=== PATIENT | female | born 1980 | race Caucasian/White ===

== ENCOUNTER 2017-11-12 22:52 | Observation (INO) | payer SELFPAY ==
[2017-11-12] MEDS ORDERED: ONDANSETRON 4 MG TAB.RAPDIS PO ONE (23:55)
--- NOTE | 2017-11-12 23:56 | ER Document Report ---
ED Medical Screen (RME) - General Chief Complaint: Abdominal Pain Stated Complaint: STOMACH PAIN Time Seen by Provider: 11/12/17 23:54 Notes: 37-year-old female chief complaint of right upper quadrant and epigastric pain with radiation around to her right flank, intermittently for some time but worse frequently, happens every time she eats now. Reports nausea but denies vomiting. No fever. Still has her gallbladder. TRAVEL OUTSIDE OF THE [place] IN LAST 30 DAYS: No - Related Data Allergies/Adverse Reactions: erythromycin base [Erythromycin Base] Allergy (Severe, Verified 12/24/14 10:23) Anaphylaxis Past Medical History - Immunizations Hx Diphtheria, Pertussis, Tetanus Vaccination: Yes - received 04/2013 Physical Exam - Vital signs Vitals: Temp Pulse Resp BP Pulse Ox 98.7 F 72 12 148/97 H 100 11/12/17 23:04 11/12/17 23:04 11/12/17 23:04 11/12/17 23:04 11/12/17 23:04 - General General appearance: Appears well In distress: None - Abdominal Tenderness: Tender - Right upper quadrant and epigastric tenderness, remaining abdomen benign Course - Vital Signs Vital signs: Temp Pulse Resp BP Pulse Ox 98.7 F 72 12 148/97 H 100 11/12/17 23:04 11/12/17 23:04 11/12/17 23:04 11/12/17 23:04 11/12/17 23:04
[2017-11-13 01:36] LABS: ABSOLUTE BASOPHILS # (AUTO) 0.1 10^3/uL (0.0-0.2); ABSOLUTE EOSINOPHILS # (AUTO) 0.3 10^3/uL (0.0-0.6); ABSOLUTE LYMPHOCYTES (AUTO) 3.2 10^3/uL (0.5-4.7); ABSOLUTE MONOCYTES (AUTO) 0.4 10^3/uL (0.1-1.4); ABSOLUTE NEUT (AUTO) 3.9 10^3/uL (1.7-8.2); EOSINOPHILS % (AUTO) 3.6 % (0-6); HEMATOCRIT 39.4 % (36.0-47.0); HEMOGLOBIN 13.4 g/dL (12.0-15.5); MEAN CORPUSCULAR HEMOGLOBIN 31.7 pg (27.0-33.4); MEAN CORPUSCULAR VOLUME 93 fl (80-97); MONOCYTES % (AUTO) 5.1 % (3-13); PLATELET COUNT 277 10^3/uL (150-450); RED BLOOD COUNT 4.22 10^6/uL (3.72-5.28); RED CELL DISTRIBUTION WIDTH 13.9 % (11.5-14.0); SEGMENTED NEUTROPHILS % (AUTO) 49.3 % (42-78); TOTAL CELLS COUNTED % (AUTO) 100 %; WHITE BLOOD COUNT 7.9 10^3/uL (4.0-10.5)
[2017-11-13 01:43] LABS: APPEARANCE,URINE CLOUDY; BILIRUBIN,URINE NEGATIVE (NEGATIVE); CALCIUM OXALATE CRYSTALS,URINE FEW /HPF; COLOR,URINE YELLOW; GLUCOSE, URINE NEGATIVE (NEGATIVE); KETONES,URINE NEGATIVE (NEGATIVE); LEUKOCYTE ESTERASE,URINE LARGE (NEGATIVE); NITRITE,URINE POSITIVE (NEGATIVE); PROTEIN,URINE NEGATIVE (NEGATIVE); URINE SPECIFIC GRAVITY 1.017; UROBILINOGEN,URINE NEGATIVE mg/dL (<2.0)
[2017-11-13 01:51] LABS: ALANINE AMINOTRANSFERASE 12 U/L (9-52); ALBUMIN 4.3 g/dL (3.5-5.0); ALKALINE PHOSPHATASE 51 U/L (38-126); ANION GAP 9 (5-19); ASPARTATE AMINO TRANSFERASE 13 U/L (14-36); BILIRUBIN,DIRECT 0.3 mg/dL (0.0-0.4); BILIRUBIN,TOTAL 0.3 mg/dL (0.2-1.3); BLOOD UREA NITROGEN 14 mg/dL (7-20); CALCIUM 10.5 mg/dL (8.4-10.2); CARBON DIOXIDE 32 mmol/L (22-30); CHLORIDE 105 mmol/L (98-107); GLUCOSE 77 mg/dL (75-110); LIPASE 253.9 U/L (23-300); POTASSIUM 4.8 mmol/L (3.6-5.0); TOTAL PROTEIN 7.4 g/dL (6.3-8.2)
--- NOTE | 2017-11-13 02:28 | ER Document Report ---
ED General - General Chief Complaint: Abdominal Pain Stated Complaint: STOMACH PAIN Time Seen by Provider: 11/12/17 23:54 TRAVEL OUTSIDE OF THE [place] IN LAST 30 DAYS: No - HPI Notes: 37-year-old female presents with epigastric pain. Patient describes months or longer of intermittent epigastric pain. Somewhat worse over the last couple of weeks. Generally related to food and eating. She cannot pick out any particular foods such as greasy foods it seems exacerbated. Sharp achy, nonradiating except sometimes to her back. Nausea but no vomiting. Gradual onset. No other modifying factors, no other associated symptoms, no other provocative or palliative factors. - Related Data Allergies/Adverse Reactions: erythromycin base [Erythromycin Base] Allergy (Severe, Verified 12/24/14 10:23) Anaphylaxis Past Medical History - Social History Smoking Status: Current Every Day Smoker Family History: None - Immunizations Hx Diphtheria, Pertussis, Tetanus Vaccination: Yes - received 04/2013 Review of Systems - Review of Systems Notes: Review of systems as in the history of present illness, otherwise negative x 10 systems. Physical Exam - Vital signs Vitals: Temp Pulse Resp BP Pulse Ox 98.7 F 72 12 148/97 H 100 11/12/17 23:04 11/12/17 23:04 11/12/17 23:04 11/12/17 23:04 11/12/17 23:04 - Notes Notes: General: Well developed . HEENT: Normocephalic, atraumatic. Pupils equal round reactive to light. No JVD. Chest: No trauma. Respiratory: Good air exchange, normal excursion. Cardiac: Regular rhythm. No murmurs or gallops. Abdomen: Soft, benign. Nondistended, mild epigastric tenderness. No significant right upper quadrant tenderness. Back: No asymmetry or gross abnormality. Motor: Grossly normal power and tone. Neurologic: Alert, nonfocal. Cranial nerves II-12 are intact. Sensation intact. Vascular: Well perfused. Normal peripheral pulses. Skin: No petechiae or purpura. Course - Re-evaluation Re-evalutation: 11/13/17 02:27 Patient seen by physician in triage. Labs and ultrasound are ordered. Currently pending. She received ondansetron for nausea. We will proceed with serial examination and reassess. Story very suspicious for cholecystitis. Consider gastritis peptic ulcer disease as well. 11/13/17 06:00 Labs reviewed, CBC unremarkable. Chemistries LFTs and lipase normal. Patient has had continued pain, received additional opiates with modest improvement. Ultrasound is obtained and shows evidence of cholelithiasis with acute cholecystitis. Patient will be admitted to the surgical service for definitive operative management. She is received Zosyn, kept n.p.o., additional morphine for pain. - Vital Signs Vital signs: Temp Pulse Resp BP Pulse Ox 98.7 F 72 12 148/97 H 100 11/12/17 23:04 11/12/17 23:04 11/12/17 23:04 11/12/17 23:04 11/12/17 23:04 - Laboratory Result Diagrams: 11/12/17 01:15 11/12/17 01:15 Laboratory results interpreted by me: 11/12/17 11/13/17 01:15 01:15 Sodium 146.0 H Carbon Dioxide 32 H Calcium 10.5 H AST 13 L Urine Nitrite POSITIVE H Ur Leukocyte Esterase LARGE H Discharge - Discharge Clinical Impression: Cholecystitis Condition: Serious Disposition: ADMITTED INPATIENT Admitting Provider: Surgicalist Unit Admitted: Surgical Floor
--- NOTE | 2017-11-13 04:32 | RADIOLOGY REPORT (SQ) ---
EXAM DESCRIPTION: US ABDOMEN LIMITED COMPLETED DATE/TME: 11/12/2017 23:54 CLINICAL HISTORY: 37 years Female, RUQ and right flank pain, nausea Comparison: None. LIMITATIONS: None. FINDINGS: Cholelithiasis including a 3.0 cm stone and gallbladder sludge, 0.8 cm gallbladder wall thickness, positive sonographic White's test, liver, a 0.7-cm diameter common bile duct, no intrahepatic ductal dilation, 11-cm right kidney, partially obscured pancreas, visualized vasculature/abdominal aorta, and no significant ascites appear otherwise unremarkable. IMPRESSION: Acute cholecystitis pattern.
[2017-11-13] MEDS ORDERED: PIPERACILLIN/TAZOBACTAM 3.375 GM VIAL IV ONE (04:53)
[2017-11-13] MEDS ORDERED: MORPHINE SULFATE 10 MG/ML INJ IV ONE (04:54)
[2017-11-13] MEDS ORDERED: RINGERS SOLUTION,LACTATED 1,000 ML IV ONE (05:27)
[2017-11-13] MEDS ORDERED: SUCCINYLCHOLINE CHLORIDE INJ 200 MG/10 ML VIAL ONE (06:00)
[2017-11-13] MEDS ORDERED: NEOSTIGMINE METHYLSULFATE 10 MG/10 ML VIAL ONE (06:00)
[2017-11-13] MEDS ORDERED: GLYCOPYRROLATE 1 MG/5 ML SYRINGE ONE (06:00)
[2017-11-13] MEDS ORDERED: VECURONIUM BROMIDE INJ 10 MG VIAL IV ONE (06:00)
--- NOTE | 2017-11-13 06:52 | PDOC H&P ---
History of Present Illness Patient complains of: Abdominal pain History of Present Illness: SHILO DALE is a 37 year old female Who presents to the emergency department via ground rescue complaining of months of intermittent abdominal pain associated with anorexia, some nausea and bloating no vomiting. No change in bowel habits. Denies history of gastrointestinal problems or GI workup. No known family history of gallbladder disease. Patient seen in the emergency department where she was found to have right upper quadrant tenderness, and a gallbladder ultrasound revealed a large 3 + cm gallstone, normal common bile duct. Liver function studies within normal limits. Given pain medication, surgery was consulted and patient was advised admission for definitive management Past Medical History Medical History: None Past Surgical History Past Surgical History: Reports: None Social History Smoking Status: Current Every Day Smoker Hx Recreational Drug Use: No Family History Family History: None Parental Family History Reviewed: Yes Children Family History Reviewed: Yes Sibling(s) Family History Reviewed.: Yes Medication/Allergy Home Medications: Cephalexin Monohydrate [Keflex 500 mg Capsule] 500 mg PO QID #20 capsule Naproxen [Naprosyn 375 Mg Tablet] 375 mg PO BID #20 tablet 12/24/14 Allergies/Adverse Reactions: erythromycin base [Erythromycin Base] Allergy (Severe, Verified 12/24/14 10:23) Anaphylaxis Review of Systems Constitutional: PRESENT: as per HPI Eyes: ABSENT: visual disturbances Ears: ABSENT: hearing changes Cardiovascular: ABSENT: chest pain, dyspnea on exertion, edema, orthropnea, palpitations Respiratory: ABSENT: cough, hemoptysis Genitourinary: ABSENT: dysuria, hematuria Musculoskeletal: ABSENT: joint swelling Integumentary: ABSENT: rash, wounds Neurological: ABSENT: abnormal gait, abnormal speech, confusion, dizziness, focal weakness, syncope Psychiatric: ABSENT: anxiety, depression, homidical ideation, suicidal ideation Endocrine: ABSENT: cold intolerance, heat intolerance, polydipsia, polyuria Hematologic/Lymphatic: ABSENT: easy bleeding, easy bruising Physical Exam Vital Signs: Temp Pulse Resp BP Pulse Ox 98.7 F 72 12 148/97 H 100 11/12/17 23:04 11/12/17 23:04 11/12/17 23:04 11/12/17 23:04 11/12/17 23:04 Intake & Output 11/11/17 11/12/17 11/13/17 06:59 06:59 06:59 Weight 79.8 kg General appearance: PRESENT: mild distress Head exam: PRESENT: normocephalic Eye exam: PRESENT: EOMI Mouth exam: PRESENT: dry mucosa Neck exam: PRESENT: full ROM Respiratory exam: PRESENT: clear to auscultation vilma Cardiovascular exam: PRESENT: RRR Pulses: PRESENT: normal carotid pulses, normal radial pulses, normal femoral pulses GI/Abdominal exam: PRESENT: other - Tender right upper quadrant with moderate guarding. Rectal exam: PRESENT: deferred Extremities exam: PRESENT: full ROM Musculoskeletal exam: PRESENT: full ROM Neurological exam: PRESENT: alert, awake, oriented to person, oriented to place , oriented to time, oriented to situation Psychiatric exam: PRESENT: appropriate affect Results Laboratory Results: 11/12/17 01:15 11/12/17 01:15 11/12/17 11/12/17 11/13/17 01:15 01:15 01:15 WBC 7.9 RBC 4.22 Hgb 13.4 Hct 39.4 MCV 93 MCH 31.7 MCHC 34.0 RDW 13.9 Plt Count 277 Seg Neutrophils % 49.3 Lymphocytes % 41.0 Monocytes % 5.1 Eosinophils % 3.6 Basophils % 1.0 Absolute Neutrophils 3.9 Absolute Lymphocytes 3.2 Absolute Monocytes 0.4 Absolute Eosinophils 0.3 Absolute Basophils 0.1 Sodium 146.0 H Potassium 4.8 Chloride 105 Carbon Dioxide 32 H Anion Gap 9 BUN 14 Creatinine 0.78 Est GFR ( Amer) > 60 Est GFR (Non-Af Amer) > 60 Glucose 77 Calcium 10.5 H Total Bilirubin 0.3 AST 13 L ALT 12 Alkaline Phosphatase 51 Total Protein 7.4 Albumin 4.3 Lipase 253.9 Serum HCG, Qual Urine Color YELLOW Urine Appearance CLOUDY Urine pH 6.0 Ur Specific [place] 1.017 Urine Protein NEGATIVE Urine Glucose (UA) NEGATIVE Urine Ketones NEGATIVE Urine Blood NEGATIVE Urine Nitrite POSITIVE H Ur Leukocyte Esterase LARGE H Urine WBC (Auto) >182 Urine RBC (Auto) 8 11/13/17 01:15 WBC RBC Hgb Hct MCV MCH MCHC RDW Plt Count Seg Neutrophils % Lymphocytes % Monocytes % Eosinophils % Basophils % Absolute Neutrophils Absolute Lymphocytes Absolute Monocytes Absolute Eosinophils Absolute Basophils Sodium Potassium Chloride Carbon Dioxide Anion Gap BUN Creatinine Est GFR ( Amer) Est GFR (Non-Af Amer) Glucose Calcium Total Bilirubin AST ALT Alkaline Phosphatase Total Protein Albumin Lipase Serum HCG, Qual NEGATIVE Urine Color Urine Appearance Urine pH Ur Specific [place] Urine Protein Urine Glucose (UA) Urine Ketones Urine Blood Urine Nitrite Ur Leukocyte Esterase Urine WBC (Auto) Urine RBC (Auto) Impressions: Abdomen Ultrasound 11/12/17 23:54 IMPRESSION: Acute cholecystitis pattern. Assessment & Plan - Diagnosis (1) Cholecystitis Is this a current diagnosis for this admission?: Yes Plan: Impression: Symptomatic cholelithiasis with cholecystitis and otherwise healthy white female Recommendations: 1. Admission, n.p.o., IV fluids 2. Set patient up for interval laparoscopic possible open cholecystectomy, [facility], general anesthesia, Dr. Kumar (2) Smoker Is this a current diagnosis for this admission?: Yes - Time Time Spent: 30 to 50 Minutes Smoking Cessation Education: 3 to 10 minutes Medications reviewed and adjusted accordingly: Yes Anticipated discharge: Home - Inpatient Certification Based on my medical assessment, after consideration of the patient's comorbidities, presenting symptoms, or acuity I expect that the services needed warrant INPATIENT care.: Yes I certify that my determination is in accordance with my understanding of Medicare's requirements for reasonable and necessary INPATIENT services [42 CFR 412.3e].: Yes Medical Necessity: Need For IV Fluids, Need for Pain Control, Need for IV Antibiotics, Need for Surgery
[2017-11-13] MEDS ORDERED: ONDANSETRON HCL INJ/PF 4 MG/2 ML SDV IV PRN ×3 (06:54→11:59)
[2017-11-13] MEDS ORDERED: BUPIVACAINE HCL 0.5%-EPI 1:200000 INJ/PF 30 ML VIAL ONE (07:57)
[2017-11-13] MEDS ORDERED: FENTANYL CITRATE INJ/PF 100 MCG/2 ML AMPUL ONE ×2 (08:40)
[2017-11-13] MEDS ORDERED: LIDOCAINE 2% INJ-PF (20 MG/ML) 10 ML AMPUL ONE (08:40)
[2017-11-13] MEDS ORDERED: ACETAMINOPHEN 1,000 MG/100 ML RTUPB IV ONE (08:41)
[2017-11-13] MEDS ORDERED: ONDANSETRON HCL INJ/PF 4 MG/2 ML SDV ONE (08:41)
[2017-11-13] MEDS ORDERED: PROPOFOL INJ 200 MG/20 ML VIAL IV ONE (08:41)
[2017-11-13] MEDS ORDERED: DEXAMETHASONE SOD PHOSPHATE INJ 4 MG/1 ML VIAL ONE (08:41)
[2017-11-13] MEDS ORDERED: MIDAZOLAM 2 MG/2 ML INJ ONE (08:41)
[2017-11-13] MEDS ORDERED: FENTANYL CITRATE INJ/PF 100 MCG/2 ML AMPUL IV PRN ×3 (09:53)
[2017-11-13] MEDS ORDERED: MORPHINE SULFATE 10 MG/ML INJ IV PRN (09:53)
[2017-11-13] MEDS ORDERED: PROMETHAZINE HCL INJ 25 MG/1 ML VIAL IV PRN ×2 (09:53)
[2017-11-13] MEDS ORDERED: MEPERIDINE HCL/PF INJ 25 MG/1 ML DISP.SYRIN IV PRN (09:53)
[2017-11-13] MEDS ORDERED: DIPHENHYDRAMINE HCL 50 MG/ML VIAL IV PRN (09:53)
[2017-11-13] MEDS: FENTANYL CITRATE INJ/PF 100 MCG/2 ML AMPUL ONE ×2 (11:16→11:21)
--- NOTE | 2017-11-13 11:19 | Operative Report ---
Nonrecallable Operative Report DATE OF SURGERY: 11/13/17 PREOPERATIVE DIAGNOSIS: acute cholecystitis with cholelithiasis POSTOPERATIVE DIAGNOSIS: same OPERATION: laparoscopic cholecystectomy with choelithiasis SURGEON: MELISSA FRASER TISSUE REMOVED OR ALTERED: gallbladder COMPLICATIONS: none ESTIMATED BLOOD LOSS: 40 mL INTRAOPERATIVE FINDINGS: cholecystitis and cholelithiasis PROCEDURE: see dictation
[2017-11-13] MEDS ORDERED: MORPHINE SULFATE 10 MG/ML INJ ONE (12:11)
[2017-11-13] MEDS: MORPHINE SULFATE 10 MG/ML INJ IV PRN ×2 (12:16→16:33)
[2017-11-13] MEDS: ACETAMINOPHEN INJ/PF 1000 MG/100 ML SDV IV SCH ×2 (12:28→17:20)
[2017-11-13] MEDS: NORMAL SALINE 1000 ML 1,000 ML IV PRN (12:48)
[2017-11-13] MEDS: FAMOTIDINE INJ/PF 20 MG/2 ML SDV IV SCH ×2 (12:48→22:58)
[2017-11-13] MEDS: KETOROLAC TROMETHAMINE INJ/PF 30 MG/1 ML SDV IV PRN ×2 (13:07→19:22)
[2017-11-13] MEDS: CEFOXITIN SODIUM 2 GM in DEXTROSE 5%-WATER 100 ML IV SCH ×2 (14:30→22:58)
--- NOTE | 2017-11-13 16:26 | OPERATIVE REPORT E ---
Operative Report NAME: SHILO DALE : 1980 AGE: 37Y DATE OF SURGERY: 11/13/2017 ROOM: 207 PREOPERATIVE DIAGNOSIS: ACUTE CHOLELITHIASIS AND CHOLECYSTITIS. POSTOPERATIVE DIAGNOSIS: ACUTE CHOLELITHIASIS AND CHOLECYSTITIS. OPERATION: Laparoscopic cholecystectomy. SURGEON: MELISSA FRASER M.D. RAG SORTER: None. ESTIMATED BLOOD LOSS: 40 mL. COMPLICATIONS: None. ANESTHESIA: General plus 30 mL of 1% lidocaine with epinephrine. DRAINS: None. INDICATION AND FINDINGS: A 37-year-old female who presents to emergency room complaining of right upper quadrant pain, intense nausea and vomiting and was found to have cholelithiasis and cholecystitis. Admitting blood work was within normal limits. The patient is taken to surgery today to undergo a laparoscopic cholecystectomy, possible open, possible cholangiogram. Procedure risks, benefits, and complications explained to the patient including the possibility of injury to the liver with bleeding and injury to common bile duct which may require repair in a tertiary center. She understands all of the above and questions answered and she desired to proceed. DESCRIPTION OF PROCEDURE: Procedure was done in the operating room. Patient was placed in supine position. General anesthesia was induced by endotracheal intubation. Abdomen was prepped and draped in the usual fashion. Incision was made. A scope was inserted through the skin and abdominal wall into the peritoneal cavity. After the pneumopperitoneum was established, a 12 mm port was inserted through the epigastrium and the two 5-mm were placed in the right lateral quadrant. The patient was then placed in a reverse Trendelenburg position with the right side elevated. The gallbladder was grasped at the level of the fundus, elevated and retroflexed. The critical view of safety was obtained by dividing the peritoneal attachement of the cystic duct medially and lateral; this dissection continued until a posterior opening to the cystic duct was obtained. The dissection was then continued both bluntly with a peanut dissector and with the hook cautery. The cystic duct was doubly clipped proximally and distally and divided with scissors. A small amount of bleeding was obtained during the development of the critical view of safety. The cystic artery was divided and this was then double clipped proximally and distally with controlled bleeding. The gallbladder was then dissected off the Endo bag via cautery and extracted from the peritoneal cavity through the epigastric port using an Endo bag. The pneumoperitineum was established. The liver bed was examined. No active bleeding was noted. A large piece of Surgicel was temporarily placed on the surgical bed. The peritoneal cavity was irrigated with normal saline which was aspirated and clear. After this was accomplished, the gallbladder bed was examined again. No active bleeding was noted. The large piece of Surgicel was removed. The fascial defect of the epigastrium was closed with the [id number] and 0-Vicryl suture placed using a fascial closure device. All instruments were removed. The CO2 released. The ports removed. The fascial defect of the epigastrium closed with the previously placed 0-Vycrol suture. The skin incisions were closed with 4-0 Vicryl subcuticular suture and Dermabond applied. The patient tolerated the procedure well, was extubated, and transferred to the recovery room in satisfactory condition. DICTATING PHYSICIAN: MELISSA FRASER M.D. [id number] PHY#: [id number] ID: [id number] JOB#: [id number] ACCT: [id number] cc:MELISSA FRASER M.D. > MTDD
[2017-11-14] MEDS: ACETAMINOPHEN INJ/PF 1000 MG/100 ML SDV IV SCH ×2 (00:58→07:00)
[2017-11-14] MEDS: NORMAL SALINE 1000 ML 1,000 ML IV PRN (01:02)
[2017-11-14] MEDS ORDERED: ENOXAPARIN SODIUM INJ 40 MG/0.4 ML DISP.SYRIN SUBCUT SCH (06:00)
[2017-11-14] MEDS: CEFOXITIN SODIUM 2 GM in DEXTROSE 5%-WATER 100 ML IV SCH (07:00)
[2017-11-14 08:38] LABS: HEMATOCRIT 31.6 % (36.0-47.0); MEAN CORPUSCULAR HEMOGLOBIN 31.9 pg (27.0-33.4); MEAN CORPUSCULAR HGB CONC 34.2 g/dL (32.0-36.0); MEAN CORPUSCULAR VOLUME 93 fl (80-97); PLATELET COUNT 220 10^3/uL (150-450); RED BLOOD COUNT 3.39 10^6/uL (3.72-5.28); RED CELL DISTRIBUTION WIDTH 13.5 % (11.5-14.0)
[2017-11-14 08:41] LABS: HEMOGLOBIN 10.8 g/dL (12.0-15.5)
[2017-11-14 09:15] LABS: ANION GAP 8 (5-19); BLOOD UREA NITROGEN 9 mg/dL (7-20); CALCIUM 8.5 mg/dL (8.4-10.2); CARBON DIOXIDE 24 mmol/L (22-30); CHLORIDE 108 mmol/L (98-107); GLUCOSE 92 mg/dL (75-110); POTASSIUM 3.7 mmol/L (3.6-5.0); SODIUM 139.6 mmol/L (137-145)
--- NOTE | 2017-11-14 09:57 | PDOC PROGRESS REPORT ---
Subjective Progress Note for:: 11/14/17 Subjective:: no c/o, tolerating po well Reason For Visit: ACUTE CHOLECYSTITIS Physical Exam Vital Signs: Temp Pulse Resp BP Pulse Ox 98.2 F 70 17 118/86 H 97 11/14/17 08:36 11/14/17 08:36 11/14/17 08:36 11/14/17 08:36 11/14/17 08:36 Intake & Output 11/13/17 11/14/17 11/15/17 06:59 06:59 06:59 Intake Total 6250 100 Output Total 3480 Balance 2770 100 Weight 80.1 kg General appearance: PRESENT: no acute distress Respiratory exam: PRESENT: clear to auscultation vilma Cardiovascular exam: PRESENT: RRR GI/Abdominal exam: PRESENT: soft, tenderness - at epigastric incisions;, other - all incisions are c/d/i Results Laboratory Results: 11/14/17 07:50 11/14/17 07:50 11/14/17 11/14/17 07:50 07:50 WBC 7.0 RBC 3.39 L Hgb 10.8 L D Hct 31.6 L MCV 93 MCH 31.9 MCHC 34.2 RDW 13.5 Plt Count 220 Sodium 139.6 Potassium 3.7 Chloride 108 H Carbon Dioxide 24 Anion Gap 8 BUN 9 Creatinine 0.55 Est GFR ( Amer) > 60 Est GFR (Non-Af Amer) > 60 Glucose 92 Calcium 8.5 Impressions: Abdomen Ultrasound 11/12/17 23:54 IMPRESSION: Acute cholecystitis pattern. Assessment & Plan - Diagnosis (1) Cholelithiasis Qualifiers: Cholelithiasis location: gallbladder Cholecystitis presence: with cholecystitis Cholecystitis acuity: acute Biliary obstruction: without biliary obstruction Qualified Code(s): K80.00 - Calculus of gallbladder with acute cholecystitis without obstruction Is this a current diagnosis for this admission?: Yes (2) Cholecystitis Is this a current diagnosis for this admission?: Yes - Plan Summary Plan Summary: A/ POD #1 lap cholke VSS, AF WBC normal patoemnt tolerating po well UA shows large nitrate, leukocyte esterase, WBC P/ Home today resume diet and all activities without limitations shower only x 2 weeks, than can bathe no wound care needed Tylenol amnd Aleve as needed OTCfor pain Ice pack to wounds prn pain Bactrim DS 1 poi BID x 10 days
--- NOTE | 2017-11-14 10:12 | DISCHARGE SUMMARY E ---
Discharge Summary NAME: SHILO DALE : 1980 AGE: 37Y ADMITTED: 11/13/2017 DISCHARGED: 11/14/2017 FINAL DIAGNOSES: 1. Cholecystitis, acute with cholelithiasis. 2. UTI. PROCEDURE: Laparoscopic cholecystectomy. SURGEON: Dwayne Kumar M.D. OCULARIST: None. COMPLICATIONS: None. HOSPITAL COURSE: Healthy 37-year-old female who presented to the Emergency Room with right upper quadrant pain, found to have cholelithiasis. The patient was taken to surgery the following day on November 14 and underwent a laparoscopic cholecystectomy uneventfully. During the procedure the gallbladder was found to be slightly inflamed; therefore, a diagnosis of acute cholecystitis with cholelithiasis was made. Postop course was unremarkable. Diet was advanced. Vital signs remained stable. Blood work on the day of discharge was within normal limits. On the day of discharge the patient had no complaints, tolerated p.o. well. Physical exam was unremarkable. The incisions were clean, dry, and intact. Abdomen was soft. Blood work was within normal limits. In addition, the admission urinalysis revealed a large amount of nitrites, leukocyte esterase, and white blood cells in the urine ; culture was not obtained. DISCHARGE ORDERS: The patient was discharged on November 14. She was given a follow-up appointment in the office in 2 weeks. She was instructed to resume all diet and all activities without limitations. Shower only for 2 weeks and bath afterwards. Tylenol and Aleve as needed over the counter for pain. Ice packs to the painful wounds as needed for pain. Bactrim double strength 1 tablet p.o. twice a day for 10 days. FOLLOWUP: She was given a follow-up appointment in the office in 2 weeks. DICTATING PHYSICIAN: DWAYNE KUMAR M.D. [id number] PHY#: [id number] ID: [id number] JOB#: [id number] ACCT: [id number] cc:Mary EDWARD MD, M.D. IVAN FRIANT, PA > MTDBrennen
[2017-11-14] MEDS: FAMOTIDINE INJ/PF 20 MG/2 ML SDV IV SCH (10:27)
[2017-11-14 10:29] VITALS: BP 98/62
== END 2017-11-14 11:22 | disposition home or self-care (01) ==
LOC: ER 22:52 → EH 11-13 06:57 → 2N 11-13 11:57
PROVIDERS: ATTEND Surgery
PROC: 0FT44ZZ Resection of Gallbladder, Percutaneous Endoscopic Approach (ICD-10-PCS; 2017-11-13)
PROC: HZ31ZZZ Individual Counseling for Substance Abuse Treatment, Behavioral (ICD-10-PCS; principal; 2017-11-13 09:00)
DX: K80.10 Calculus of gallbladder with chronic cholecystitis without obstruction (principal); N39.0 Urinary tract infection, site not specified; F17.200 Nicotine dependence, unspecified, uncomplicated
CPT/HCPCS: 99285; 96361; 96375; 96365; 36415 ×2; 83690; 84703; 85025; 85027; 80048; 80053; 81001; 88304 ×2; 76705; 94799; 99406; 47562; G0378 ×3; J2250; J3490 ×4; J1100; J0694 ×2; S0119; J3010; J1885; J2270; J1650; J0330; J2405; J7030 ×2; J7120; J2704; S0028; J2543; J0131 ×2; 790; 96374